=== PATIENT | male | born 1960 | race Hispanic/Latino ===

== ENCOUNTER → 2024-06-22 | Day surgery (SDC) | payer MEDICARE ==
[~2024-06-22] MED LIST: ACETAMINOPHEN 1000 MG/100 ML 100 ML IV ONE; ACETAMINOPHEN 1000 MG/100 ML IV PRN; ASPIRIN 325 MG TAB PO SCH; BENICAR20 MG PO; BUPIVACAINE 0.25% 30ML SDV ONE; BUPIVACAINE/EPI 0.5% 30ML SDV-MPF INJ ONE; CELECOXIB 100 MG CAP PO SCH; CRESTOR40 MG PO; DEXAMETHASONE SOD PHOS INJ 4 MG/ML SDV ONE; DIPHENHYDRAMINE HCL INJ 50 MG/ML VIAL IV PRN; DOCUSATE SODIUM 100 MG CAP PO PRN; EPHEDRINE SULFATE INJ 50 MG/ML VIAL ONE; FENTANYL CITRATE/PF 100MCG/2 ML INJ ONE; HYDROCODONE/APAP 5MG-325MG TAB PO PRN; HYDROCODONE/APAP 7.5MG-325MG 1 EA TAB PO PRN; KETAMINE HCL INJ 50 MG/ML 10 ML VIAL ONE; LACTATED RINGER'S 1,000 ML ONE; LIDOCAINE HCL 2% LOCAL INJ 5 ML SDV VIAL INJ ONE; MIDAZOLAM HCL 2 MG/2 ML VIAL ONE; MOUNJARO5 MG/0.5 M INJ; ONDANSETRON HCL INJ 2MG/ML 2ML 2 MG/ML VIAL IV PRN; ONDANSETRON HCL INJ 2MG/ML 2ML 2 MG/ML VIAL ONE; PROPOFOL IV EMULSION 10 MG/ML 20 ML VIAL ONE; ROPIVACAINE/EPI/CLONIDINE/KET 50 ML SYRINGE INJ ONE; SEVOFLURANE INHAL SOLN 250 ML PEN BTL ONE; SODIUM CHLORIDE 0.9% 1000ML 1,000 ML IV SCH
[2024-06-22] MEDS: LACTATED RINGER'S 1,000 ML ONE (06:13)
[2024-06-22] MEDS: CEFAZOLIN SODIUM 2 GM ONE (06:13)
[2024-06-22] MEDS: GABAPENTIN 300 MG CAP ONE (06:14)
[2024-06-22] MEDS: DEXAMETHASONE SOD PHOS 10 MG/1 ML VIAL ONE (06:14)
[2024-06-22] MEDS: CELECOXIB 200 MG CAP ONE (06:14)
[2024-06-22 08:54] VITALS: TEMP 98
[2024-06-22 10:15] VITALS: BP 133/73; PULSE 58; RESP 16; O2SAT 94
== END | disposition home health service (06) ==
LOC: OR 05:05
PROVIDERS: ATTEND Specialist
DX: M17.12 Unilateral primary osteoarthritis, left knee (principal); I10 Essential (primary) hypertension; E78.5 Hyperlipidemia, unspecified; E11.9 Type 2 diabetes mellitus without complications; Z79.85 Long-term (current) use of injectable non-insulin antidiabetic drugs; E66.9 Obesity, unspecified; Z68.41 Body mass index [BMI] 40.0-44.9, adult; Z71.3 Dietary counseling and surveillance; Z01.812 Encounter for preprocedural laboratory examination; Z01.818 Encounter for other preprocedural examination; Z79.899 Other long term (current) drug therapy
CPT/HCPCS: 27447; 71046; 73560; 86850; 86900; 97116; 97161; C1713 ×3; C1776 ×2; J0131; J1100 ×2; J2003; J2250; J2405; J2704; J3010; J7121